=== PATIENT | female | born 1965 | race Caucasian/White ===

== ENCOUNTER 2017-09-15 23:58 | Emergency (ER) | payer OTHER ==
[2017-09-16] MEDS ORDERED: Ketorolac Tromethamine 60 MG/2 ML VIAL ONE (01:47)
[2017-09-16] MEDS ORDERED: Diazepam 10 MG/2 ML SYRINGE ONE (01:47)
== END 2017-09-16 02:24 | disposition home or self-care (01) ==
LOC: ERS 23:58
DX: G89.29 Other chronic pain (principal); M54.5 Low back pain; E03.9 Hypothyroidism, unspecified; F90.9 Attention-deficit hyperactivity disorder, unspecified type; Z79.899 Other long term (current) drug therapy; Z87.891 Personal history of nicotine dependence
CPT/HCPCS: 96372; J1885; J3360

== ENCOUNTER 2018-05-04 09:53 | Day surgery (SDC) | payer OTHER ==
[2018-05-04] MEDS ORDERED: Midazolam HCl 2 mg/2 ml Vial ONE (12:10)
[2018-05-04] MEDS ORDERED: Fentanyl 100 MCG/2 ML VIAL ONE (12:10)
[2018-05-04] MEDS ORDERED: PROPOFOL 200 MG/20 ML VIAL ONE (13:23)
--- NOTE | 2018-05-04 15:36 | MRI ---
MRI LUMBAR SPINE WITHOUT CONTRAST: COMPARISON: 02/16/2012. HISTORY: Lumbar degenerative disk disease. Lumbar radiculopathy. Chronic low back pain radiating down the le ft lower extremity. COMPARISON: None. TECHNIQUE: MRI lumbar spine is performed without intravenous Gadolinium administration. Multisequential, multip lanar imaging is performed. FINDINGS: Appropriate T1 marrow signal intensity of the lumbar vertebrae. Lumbar spine vertebral body height i s maintained. There is no fracture. No significant STIR hyperintensity to suggest vertebral body ed darnell or ligamentous injury. Appropriate signal intensity of the visualized paraspinal muscles including the psoas muscles. T2 hy perintensity in the right renal cortex likely representing cysts. Conus medullaris terminates at the lower aspect of L1. T12-L1: Adequate disk hydration. No significant central canal stenosis. Foramen are patent. L1-L2: Adequate disk hydration. No significant central canal stenosis. Foramen are patent. L2-L3: Adequate disk hydration. No significant central canal stenosis. Foramen are patent. L3-L4: Desiccation with mild loss of disk space height. There is minimal flattening of the ventral thecal sac secondary to broad-based disk bugle. Minimal ligamentum flavum thickening and facet hyper trophy. No significant central canal stenosis. Neural foramina are patent. L4-L5: Desiccation with mild loss of disk space height. Generalized disk bulge, mild ligamentum fla vum thickening, and facet hypertrophy are noted. No significant central canal stenosis. Right neura l foramen is patent. Mild left foraminal narrowing. L5-S1: Desiccation without significant loss of disk space height. There is a broad-based disk bulge , mild ligamentum flavum thickening, and facet hypertrophy. No significant central canal stenosis. Mild to moderate right and left foraminal narrowing. IMPRESSION: Degenerative change of the lumbar spine as detailed above. Degree of central canal stenosis at L3-L4 has decreased. Throughout the lumbar spine, there is no significant central canal stenosis. POS: [facility]
== END 2018-05-04 14:15 | disposition home or self-care (01) ==
LOC: SDC/OP 09:53
PROVIDERS: ATTEND Neurological Surgery
PROC: B03BZZZ Magnetic Resonance Imaging (MRI) of Spinal Cord (ICD-10-PCS; principal; 2018-05-04)
DX: M51.16 Intervertebral disc disorders with radiculopathy, lumbar region (principal); M48.061 Spinal stenosis, lumbar region without neurogenic claudication; E03.9 Hypothyroidism, unspecified; G43.909 Migraine, unspecified, not intractable, without status migrainosus; Z90.710 Acquired absence of both cervix and uterus; Z90.81 Acquired absence of spleen; Z98.51 Tubal ligation status; Z88.8 Allergy status to other drugs, medicaments and biological substances; Z79.899 Other long term (current) drug therapy
CPT/HCPCS: 72148; J2250; J3010

== ENCOUNTER 2019-02-07 12:34 | Observation (INO) | payer OTHER ==
[2019-02-07 13:51] LABS: #Basophils 0.1 thou/uL (0.0-0.2); #Eosinphils 0.3 thou/uL (0.0-0.7); #Monocytes 0.7 thou/uL (0.11-0.59); #Neutrophils 4.4 thou/uL (1.40-6.50); %Basophils 0.8 % (0.0-1.0); %Lymphocytes 35.2 % (21.0-51.0); %Monocytes 8.7 % (0.0-10.0); %Neutrophils 52.4 % (42.0-75.0); Hemoglobin 11.5 g/dL (12.0-16.0); Mean Corpuscular HGB CONC 32.4 g/dL (32.0-36.0); Mean Corpuscular Hemoglobin 30.8 pg (27.0-31.0); Mean Corpuscular Volume 95.2 fL (78.0-98.0); Mean Platelet Volume 7.3 fL (7.4-10.4); Platelet Count 296 thou/uL (130-400); RBC Distribution Width 12.7 % (11.5-14.5); Red Blood Cell (RBC) Count 3.73 mill/uL (4.20-5.40); White Blood Cell (WBC) Count 8.5 thou/uL (4.8-10.8)
[2019-02-07 14:23] LABS: ALT (SGPT) 40 U/L (8-55); AST (SGOT) 38 U/L (5-34); Albumin 3.8 g/dL (3.5-5.0); Alkaline Phosphatase 76 U/L (40-110); Anion Gap 12 mmol/L (10-20); BUN (Urea Nitrogen) 20 mg/dL (9.8-20.1); Bilirubin, Total 0.5 mg/dL (0.2-1.2); CK (CPK) 101 U/L (29-168); Calc. Creatinine Clearance 0 mL/min (70-130); Calcium 9.1 mg/dL (7.8-10.44); Carbon Dioxide 23 mmol/L (22-29); Chloride 107 mmol/L (98-107); Estimated GFR-MDRD 68; Globulin 3.1 g/dL (2.4-3.5); Glucose 88 mg/dL (70-105); Potassium 3.4 mmol/L (3.5-5.1); Protein, Total 6.9 g/dL (6.0-8.3); Sodium 139 mmol/L (136-145)
[2019-02-07 14:45] LABS: Bacteria/HPF None Seen HPF (None Seen); Bilirubin Negative (Negative); Blood, Urine Negative (Negative); Clarity Clear (Clear); Glucose, Urine (Dipstick) Normal (Negative); Leukocyte 25 Leu/uL (Negative); Nitrite Negative (Negative); Protein, Urine (Dipstick) Negative (Neg-Trace); RBC/HPF 0-3 HPF (0-3); Squamous Epithelial 0-3 HPF (0-3); Urobilinogen Normal mg/dL (Less than 2); WBC/HPF 0-3 HPF (0-3)
--- NOTE | 2019-02-07 15:57 | PDOC.FPRHP ---
- History of Present Illness Chief Complaint: dizziness History of Present Illness: This is a 53yo F presenting to the ER for dizziness. She was sent over from [facility] clinic due to low BPs -70/40s. She had surgery on Monday at [facility] for her back with Dr. Rodriguez - discectomy and fusion of L5-S1. Patient's pain has been controlled with [place] 10/325 and tylenol #4 (from before) at home. Endorses constipation. Patient states that she did walk around the floor on Monday prior to her discharge yesterday. She endorses pain in her left leg and numbness in the right. Denies fever, chills, NVD, chest pain, SOB, headaches, vision changes. Endorses ringing in her ears. Denies any loss of hearing. States that her BPs were low prior to discharge on Monday and that she has felt persistently dizzy and lightheaded. She states it is worse with position changes. She states the room is not spinning but she just feels lightheaded. ED Course: 2L NS - Allergies/Adverse Reactions Allergies Allergy/AdvReac Type Severity Reaction Status Date / Time dihydroergotamine Allergy Verified 05/03/18 17:16 [Dihydroergotamine] - Home Medications Medication Instructions Recorded Confirmed Type Dextroamphetamine/Amphetamine 30 mg PO DAILY 05/03/18 02/07/19 History [Dextroamp-Amphet ER 30 mg Cap] Levothyroxine Sodium [Synthroid] 137 mcg PO DAILY 05/03/18 02/07/19 History Topiramate [Topamax] 400 mg PO HS 05/04/18 02/07/19 History hydrOXYzine [Atarax] 25 mg PO HS PRN 05/04/18 02/07/19 History Ascorbic Acid [Vitamin C] 1,000 mg PO DAILY 02/07/19 02/07/19 History FLUoxetine HCl 20 mg PO DAILY 02/07/19 02/07/19 History Folic Acid 1 mg PO DAILY 02/07/19 02/07/19 History HYDROcodone/Acetaminophen [[place] 1 each PO PRN PRN 02/07/19 02/07/19 History 10-325 Tablet] clonazePAM [Klonopin] 0.5 mg PO HS 02/07/19 02/07/19 History tiZANidine HCl [Tizanidine HCl] 4 mg PO TID PRN 02/07/19 02/07/19 History - History PMHx: hypothyroidism, ADHD, hx of migraines, depression PSHx: discectomy/fusion on 02/05, tubal ligation, TAHBSO, splenectomy, cholecystectomy, tendon repair in L hand FHx: Uncle/cousin - DM, GM - CAD Social: Denies alcohol; Tobacco - smoked for 30yrs, 1pack/day; Currently vapes - Review of Systems General: denies: fever/chills, weight/appetite/sleep changes, night sweats, fatigue Eyes: denies: eye pain, vision changes ENT: denies: nasal congestion, rhinorrhea Respiratory: denies: cough, congestion, shortness of breath, exercise intolerance Cardiovascular: denies: chest pain, palpitation, edema, paroxysmal nocturnal dyspnea, orthopnea Gastrointestinal: denies: nausea, vomiting, diarrhea, constipation, abdominal pain Genitourinary: denies: dysuria Skin: denies: rashes, lesions Musculoskeletal: reports: pain, tenderness. denies: stiffness, swelling Neurological: denies: syncope, seizure, weakness Psychological: reports: depression - Vital signs BP: 95/46, MAP: 62, Pulse: 56, Resp: 20, Temp: 97.7 (Oral), Pain: 7, O2 sat: 98 on (Room Air), Time: 02/07/2019 15:15. Weight 80kg Bps in the room @ 1600pm 117/69 and 1639 122/60 after 1.5L - Physical Exam Constitutional: NAD, awake, alert and oriented, well developed HEENT: normocephalic and atraumatic, PERRLA, EOMI, no scleral icterus, grossly normal vision, grossly normal hearing, MMM -HEENT: unable to perform ellen hallpike due to back pain; no nystagmus noted Neck: supple, FROM Chest: no-tender to palpation, no lesions Heart: RRR, normal S1/S2, no murmurs/rubs/gallops, pulses present, no edema Lungs: CTAB, no respiratory distress, good air movement, no rales/rhonchi, no wheezing Abdomen: soft, non-tender, bowel sounds present, no masses/distention, no hernias -Musculoskeletal: limited ROM of lower back - difficulty with flexion or extension Neurological: no focal deficit, CN II-XII intact Skin: no rash/lesions, good turgor, capillary refill <2 seconds Psychiatric: normal mood and affect FMR H&P: Results - Labs Result Diagrams: 02/08/19 05:29 02/08/19 05:29 Lab results: WBC 8.5 thou/uL (4.8-10.8) 02/07/19 13:36 Hgb 11.5 g/dL (12.0-16.0) L 02/07/19 13:36 Hct 35.5 % (36.0-47.0) L 02/07/19 13:36 MCV 95.2 fL (78.0-98.0) 02/07/19 13:36 Plt Count 296 thou/uL (130-400) 02/07/19 13:36 Neutrophils % 52.4 % (42.0-75.0) 02/07/19 13:36 Sodium 139 mmol/L (136-145) 02/07/19 13:36 Potassium 3.4 mmol/L (3.5-5.1) L 02/07/19 13:36 Chloride 107 mmol/L (98-107) 02/07/19 13:36 Carbon Dioxide 23 mmol/L (22-29) 02/07/19 13:36 BUN 20 mg/dL (9.8-20.1) 02/07/19 13:36 Creatinine 0.87 mg/dL (0.6-1.1) 02/07/19 13:36 Glucose 88 mg/dL (70-105) 02/07/19 13:36 Calcium 9.1 mg/dL (7.8-10.44) 02/07/19 13:36 Total Bilirubin 0.5 mg/dL (0.2-1.2) 02/07/19 13:36 AST 38 U/L (5-34) H 02/07/19 13:36 ALT 40 U/L (8-55) 02/07/19 13:36 Alkaline Phosphatase 76 U/L (40-110) 02/07/19 13:36 Creatine Kinase 101 U/L (29-168) 02/07/19 13:36 Serum Total Protein 6.9 g/dL (6.0-8.3) 02/07/19 13:36 Albumin 3.8 g/dL (3.5-5.0) 02/07/19 13:36 Urine Ketones Negative mg/dL (Negative) 02/07/19 Unknown Urine Blood Negative (Negative) 02/07/19 Unknown Urine Nitrite Negative (Negative) 02/07/19 Unknown Ur Leukocyte Esterase 25 Sean/uL (Negative) 02/07/19 Unknown Urine RBC 0-3 HPF (0-3) 02/07/19 Unknown Urine WBC 0-3 HPF (0-3) 02/07/19 Unknown Ur Squamous Epith Cells 0-3 HPF (0-3) 02/07/19 Unknown Urine Bacteria None Seen HPF (None Seen) 02/07/19 Unknown FMR H&P: A/P - Problem List (1) Hypotension Current Visit: Yes Status: Acute (2) H/O discectomy Current Visit: Yes Status: Acute Code(s): Z98.890 - OTHER SPECIFIED POSTPROCEDURAL STATES (3) Hypothyroid Current Visit: Yes Status: Acute Code(s): E03.9 - HYPOTHYROIDISM, UNSPECIFIED (4) Depression Current Visit: Yes Status: Acute Code(s): F32.9 - MAJOR DEPRESSIVE DISORDER , SINGLE EPISODE, UNSPECIFIED (5) Migraine Current Visit: Yes Status: Acute Code(s): G43.909 - MIGRAINE, UNSP, NOT INTRACTABLE, WITHOUT STATUS MIGRAINOSUS - Plan #Hypotension 2/2 fluid depletion s/p Discetomy and fusion with Dr. Rodriguez on 02/05/19. - Will admit for fluid resuscitation. s/p 2L in the ER with BPs in the normal range. Will continue on mIVF and can likely dc in the AM. - Will give meclizine for dizziness - Continue norco for pain control as well as ibuprofen - No concern for infection at this time. Patient WBC is normal. Afebrile and other VS normal. #Hypothyroid - Will continue home meds. TSH normal #ADHD - On adderall, will hold during hospital stay #Migraines - No current symptoms. Will continue topamax HS. Code: FULL Diet: HH PPx: lovenox - due to recent surgery and immobile Dispo: admit to medical obs, likely dc tomorrow. Case discussed with Dr. Jenkins. Addendum - Attending - Attending Attestation Date/Time: 02/08/19 [id number] I personally evaluated the patient and discussed the management with Dr. Weaver. I agree with the History, Examination, Assessment and Plan documented above with any addition or exceptions noted below. Patient with very vague and nonspecific "dizziness" and "lightheadedness." She is noncommittal if this is with movement, rising, or other symptoms. No n/v. No f/c. Her back is causing her mild discomfort. Otherwise doing quite well with a nonfocal exam. Her incision has the original dressing and will need to be changed. Continue IVF, send AM cortisol, courtesy call to NSx.
[2019-02-07] MEDS ORDERED: Ondansetron ODT 4 MG TAB PO PRN (16:32)
[2019-02-07] MEDS ORDERED: Acetaminophen 325 MG TAB PO PRN (16:32)
[2019-02-07] MEDS ORDERED: Ondansetron PF 4 MG/2 ML Vial IVP PRN (16:32)
[2019-02-07] MEDS ORDERED: Acetaminophen 650 MG Suppository PR PRN (16:32)
[2019-02-07] MEDS ORDERED: Meclizine HCl 25 MG TAB PO PRN (17:09)
[2019-02-07] MEDS ORDERED: HYDROcodone/Acetaminophen 5/325 mg Tablet PO PRN (17:13)
[2019-02-07] MEDS ORDERED: Potassium Chloride 20 MEQ TAB PO SCH (17:15)
[2019-02-07] MEDS: Lactated Ringer's 1,000 ML IV SCH (18:03)
[2019-02-07 18:41] VITALS: BMI 30.1
[2019-02-07] MEDS: Topiramate 100 MG TAB PO SCH (20:43)
[2019-02-07] MEDS: Cyclobenzaprine 10 MG TAB PO SCH (20:44)
[2019-02-07] MEDS: hydrOXYzine 25 MG TAB PO SCH (20:44)
[2019-02-08] MEDS: HYDROcodone/Acetaminophen 10/325 mg Tablet PO PRN ×5 (00:29→23:15)
[2019-02-08] MEDS: Lactated Ringer's 1,000 ML IV SCH ×4 (01:45→20:28)
[2019-02-08] MEDS ORDERED: Melatonin 3 MG TAB PO PRN (02:28)
[2019-02-08] MEDS ORDERED: Acetaminophen 500 MG TAB PO PRN (02:30)
[2019-02-08] MEDS ORDERED: diphenhydrAMINE 25 MG CAP PO PRN (03:09)
[2019-02-08] MEDS ORDERED: hydrOXYzine 25 MG TAB PO SCH (04:00)
[2019-02-08] MEDS ORDERED: Docusate 100 MG CAP PO SCH (04:00)
[2019-02-08 05:49] LABS: #Basophils 0.1 thou/uL (0.0-0.2); #Eosinphils 0.2 thou/uL (0.0-0.7); #Lymphocytes 2.6 thou/uL (1.20-3.40); #Monocytes 0.7 thou/uL (0.11-0.59); #Neutrophils 3.6 thou/uL (1.40-6.50); %Eosinophils 3.2 % (0.0-10.0); %Lymphocytes 36.5 % (21.0-51.0); %Monocytes 9.1 % (0.0-10.0); %Neutrophils 50.3 % (42.0-75.0); Mean Corpuscular HGB CONC 32.6 g/dL (32.0-36.0); Mean Corpuscular Hemoglobin 31.1 pg (27.0-31.0); Mean Corpuscular Volume 95.2 fL (78.0-98.0); Mean Platelet Volume 7.1 fL (7.4-10.4); Platelet Count 287 thou/uL (130-400); RBC Distribution Width 12.7 % (11.5-14.5); Red Blood Cell (RBC) Count 3.53 mill/uL (4.20-5.40); White Blood Cell (WBC) Count 7.2 thou/uL (4.8-10.8)
[2019-02-08] MEDS: Levothyroxine Sodium 25 MCG TAB PO SCH (05:51)
[2019-02-08] MEDS: Levothyroxine Sodium 112 MCG TAB PO SCH (05:51)
[2019-02-08 06:14] LABS: Anion Gap 11 mmol/L (10-20); BUN (Urea Nitrogen) 13 mg/dL (9.8-20.1); Calc. Creatinine Clearance 115 mL/min (70-130); Calcium 8.4 mg/dL (7.8-10.44); Carbon Dioxide 19 mmol/L (22-29); Chloride 114 mmol/L (98-107); Estimated GFR-MDRD 85; Glucose 89 mg/dL (70-105); Potassium 4.9 mmol/L (3.5-5.1); Sodium 139 mmol/L (136-145)
--- NOTE | 2019-02-08 06:55 | PDOC.FM ---
- Subjective Subjective: Patient tearful and anxious today. States she hasn't slept in 5 days. - Objective MAR Reviewed: Yes Vital Signs & Weight: Vital Signs (12 hours) Temp Pulse Resp BP BP BP Pulse Ox 02/08/19 04:00 98.1 F 81 20 102/69 100 02/08/19 00:00 97.9 F 102 H 20 100/65 98 02/07/19 20:00 97.8 F 68 20 112/66 02/07/19 19:58 97.8 F 68 20 112/66 99 Weight Weight 79.605 kg Result Diagrams: 02/08/19 05:29 02/08/19 05:29 Phys Exam - Physical Examination Constitutional: NAD HEENT: moist MMs, sclera anicteric Neck: supple, full ROM Respiratory: no wheezing, no rales, no rhonchi, clear to auscultation bilateral Cardiovascular: RRR, no significant murmur, no rub Gastrointestinal: soft, non-tender, no distention Musculoskeletal: no edema, pulses present Neurological: non-focal, normal sensation Psychiatric: normal affect, A&O x 3 Dx/Plan - Plan Plan: Hypotension 2/2 dehydration s/p Discetomy and fusion with Dr. Rodriguez on 02/05/19 at [facility] - Will admit for fluid resuscitation. s/p 2L in the ER with BPs in the normal range. Continue IVF - Will give meclizine for dizziness - Continue norco for pain control as well as ibuprofen - No concern for infection at this time. Patient WBC is normal. Afebrile and other VS normal. - Will contact surgeon for postoperative pain control expectations Decreased AM cortisol - will pursue ACTH stimulation test Hypothyroid - Will continue home meds. TSH normal ADHD - On adderall, will hold during hospital stay Migraines - No current symptoms. Will continue topamax HS. Code: FULL Diet: HH PPx: lovenox - due to recent surgery and immobile Dispo: admit to medical obs, likely dc today Addendum - Attending - Attending Attestation Date/Time: 02/08/19 1710 I personally evaluated the patient and discussed the management with Dr. Gibson. I agree with the History, Examination, Assessment and Plan documented above with any addition or exceptions noted below. I think her chroninc insomnia is related to anxiety and long history of alcohol , opioid and benzo exposure. We will not contue her adderall. Will use non benzo pharmacology therapy to help with sleep recognizing there is not quick fix. We will consult NS for approprite post op pain control regimen and start therapy for opioid-related constipation.
[2019-02-08] MEDS ORDERED: Non-Formulary Item 1 EACH (Levothyroxine Sodium [Synthroid] 137 MCG) PO SCH (09:00)
[2019-02-08] MEDS: Bupropion 150 MG XL TAB PO SCH (09:08)
[2019-02-08] MEDS: Enoxaparin Sodium 40 MG/0.4 ML SYRINGE SC SCH (09:08)
[2019-02-08] MEDS: Ibuprofen 200 MG TAB PO PRN ×2 (10:21→15:36)
[2019-02-08] MEDS: Cephalexin 250 MG CAP PO SCH ×3 (12:21→23:15)
[2019-02-08] MEDS ORDERED: Polyethylene Glycol 3350 17 GM Packet PO SCH (12:45)
[2019-02-08] MEDS ORDERED: Cosyntropin 250 MCG VIAL SLOW IVP SCH (15:45)
[2019-02-08] MEDS: Cyclobenzaprine 10 MG TAB PO SCH (20:29)
[2019-02-08] MEDS: Topiramate 100 MG TAB PO SCH (20:30)
[2019-02-08] MEDS: hydrOXYzine 25 MG TAB PO SCH (20:30)
[2019-02-09] MEDS: HYDROcodone/Acetaminophen 10/325 mg Tablet PO PRN ×2 (03:29→10:16)
[2019-02-09] MEDS: Cephalexin 250 MG CAP PO SCH ×2 (05:31→13:23)
[2019-02-09] MEDS: Levothyroxine Sodium 112 MCG TAB PO SCH (05:31)
[2019-02-09] MEDS: Levothyroxine Sodium 25 MCG TAB PO SCH (05:32)
--- NOTE | 2019-02-09 05:51 | PDOC.FM ---
- Subjective Subjective: Doing well this morning. States dizziness if improved but still present at times and worse with positional changes. Denies any CP, SOB, n/v, fever/chills. No syncopal events or vision changes. Does endorse chronic constipation with small BM yesterday. - Objective MAR Reviewed: Yes Vital Signs & Weight: Vital Signs (12 hours) Temp Pulse Resp BP Pulse Ox 02/08/19 20:00 98.0 F 87 20 116/78 97 Weight Admit Weight 79.605 kg Weight 79.605 kg I&O: 02/07/19 02/08/19 02/09/19 06:59 06:59 06:59 Intake Total 1200 4340 Balance 1200 4340 Result Diagrams: 02/08/19 05:29 02/08/19 05:29 Phys Exam - Physical Examination Constitutional: NAD HEENT: PERRLA, moist MMs Neck: supple Respiratory: no wheezing, no rales, no rhonchi, clear to auscultation bilateral Cardiovascular: RRR, no significant murmur, no rub Gastrointestinal: soft, non-tender, no distention, positive bowel sounds Musculoskeletal: no edema, pulses present Neurological: non-focal, normal sensation, moves all 4 limbs Psychiatric: normal affect, A&O x 3 Dx/Plan (1) Dizziness Code(s): R42 - DIZZINESS AND GIDDINESS Status: Acute (2) Depression Code(s): F32.9 - MAJOR DEPRESSIVE DISORDER, SINGLE EPISODE, UNSPECIFIED Status : Chronic (3) H/O discectomy Code(s): Z98.890 - OTHER SPECIFIED POSTPROCEDURAL STATES Status: Chronic (4) Hypothyroid Code(s): E03.9 - HYPOTHYROIDISM, UNSPECIFIED Status: Chronic - Plan Plan: 53yo CF with recent L5/S1 fusion, hypothyroidism, chronic pain, and depression who presents with hypotension and dizziness. #Hypotension 2/2 dehydration, resolved - s/p Discetomy and fusion with Dr. Rodriguez on 02/05/19 at [facility] - Initial fluid resuscitation. s/p 2L in the ER with BPs in the normal range. BP 's stable at 110s/70s, tolerating PO well, will d/c fluids this AM. - Continue norco for pain control as well as ibuprofen - No concern for infection at this time. Patient WBC is normal. Afebrile and other VS normal. - Seen by neurosurg, apprec assistance, restarted post-op keflex, stating wound healing well #Decreased AM cortisol - ACTH stim test positive for mild adenal insufficiency - Need basal ACTH, will order for this AM, but may be off 2/2 test last night - Sxs resolved, further testing and consider steroids - Possibly 2/2 acute stress with recent surgery #Hypothyroid - Will continue home meds. TSH normal #ADHD - On adderall, will hold during hospital stay #Migraines - No current symptoms. Will continue topamax HS. #Constipation - Miralax and Senokot per home regime Code: FULL Diet: HH PPx: lovenox - due to recent surgery and immobile Dispo: Admitted to medical obs, hypotension resolved, concern for adrenal insufficiency, workup continuing, consider addition of steroids. Addendum - Attending - Attending Attestation Date/Time: 02/09/19 7415 I personally evaluated the patient and discussed the management with Dr. Nanci Starr I agree with the History, Examination, Assessment and Plan documented above with any addition or exceptions noted below.Patient was very vocal and unhappy with nurse and care in general this AM during my rounds. I reviewed in detail our care plan and reasons with for holding some of "polypharmacy" medications. Will IV Bolus 500 NS and trial stress dose steroid to see if we can get her feeling better. Nurse patiently trying to appropriately redirect and reconcile all her home medications with the patient.
[2019-02-09] MEDS: Bupropion 150 MG XL TAB PO SCH (09:36)
[2019-02-09] MEDS: Enoxaparin Sodium 40 MG/0.4 ML SYRINGE SC SCH (10:15)
[2019-02-09] MEDS ORDERED: Non-Formulary Item 1 EACH (Tizanidine Hcl [Tizanidine Hcl] 4 MG) PO PRN (10:55)
[2019-02-09] MEDS ORDERED: tiZANidine HCl 4 MG TAB PO PRN (10:58)
[2019-02-09] MEDS ORDERED: Hydrocortisone 10 mg Tablet PO SCH ×2 (11:45→21:00)
[2019-02-09] MEDS ORDERED: Senokot S 8.6-50 MG TAB PO SCH ×2 (13:30→21:00)
[2019-02-09 17:09] VITALS: BP 126/84; TEMP 97.8
[2019-02-10] MEDS ORDERED: FLUoxetine HCl 20 MG CAP PO SCH (09:00)
[2019-02-10] MEDS ORDERED: Non-Formulary Item 1 EACH (Ascorbic Acid [Vitamin C] 1,000 MG) PO SCH (09:00)
[2019-02-10] MEDS ORDERED: Folic Acid 1 MG TAB PO SCH (09:00)
[2019-02-10] MEDS ORDERED: Non-Formulary Item 1 EACH (Fluoxetine Hcl [Fluoxetine Hcl] 20 MG) PO SCH (09:00)
[2019-02-10] MEDS ORDERED: Ascorbic Acid 500 mg Chewable Tablet PO SCH (09:00)
--- NOTE | 2019-02-11 00:40 | DIS ---
DATE OF ADMISSION: 02/07/2019 DATE OF DISCHARGE: 02/09/2019 RESIDENT: Ronnie Starr MD ADMITTING ATTENDING: Odilon Jenkins MD DISCHARGE ATTENDING: Karan Enamorado MD CONSULTS: Neurosurgery. PROCEDURES: None. PRIMARY DIAGNOSES: 1. Hypotension secondary to dehydration, resolved. 2. Stress response secondary to recent surgery. SECONDARY DIAGNOSES: 1. Hypothyroidism. 2. Adult attention deficit hyperactivity disorder. 3. History of migraines. 4. History of constipation. 5. Chronic pain. 6. Depression. 7. Recent L5-S1 fusion. DISCHARGE MEDICATIONS: 1. Levothyroxine 137 mcg p.o. daily. 2. Hydroxyzine 25 mg p.o. at bedtime p.r.n. 3. Topamax 40 mg p.o. at bedtime. 4. Klonopin 0.5 mg p.o. at bedtime. 5. [place] 10/325 one tablet p.o. t.i.d. p.r.n. 6. Tizanidine 4 mg p.o. t.i.d. p.r.n. 7. Folic acid 1 mg p.o. daily. 8. Prozac 20 mg p.o. daily. 9. Vitamin C 1000 mg p.o. daily. 10. Keflex 250 mg p.o. q.6 hours x7 days. 11. Hydrocortisone 25 mg p.o. b.i.d. x2 days. DISCONTINUED MEDICATIONS: None. HISTORY OF PRESENT ILLNESS AND HOSPITAL COURSE: The patient is a 53-year-old female with history of hypothyroidism, ADHD, migraines, depression, who presented to the ER for dizziness, found to be hypotensive. She initially presented to the [facility] with blood pressure to the 70s/ 40s. Of note, she had recent surgery at [facility] discectomy and fusion of L5-S1. Pain was well controlled with [place] 10/325 and Tylenol No.4. The patient denied any chest pain, shortness of breath, headaches, or vision changes. The patient states that her dizziness and lightheadedness were worse with positional changes, but denied any vertigo. In the ED, she was given 2 L normal saline bolus and was admitted for further evaluation and management. Once on the floor, the patient was continued on IV fluid hydration. The patient 's blood pressure improved. The patient's initial laboratory work was unremarkable. Her home medications were continued; however, her Adderall was held during hospitalization. The patient had a a.m. cortisol level that was checked and found to be low, thus there was concern for adrenal insufficiency. The patient had an ACTH stimulation test that was negative for adrenal insufficiency, however, was right at the cutoff of 18 to 20 cortisol level with administration of ACTH. Unfortunately, a basal ACTH level was not obtained prior to administration of the test. However, the following morning ACTH level was ordered and was pending at the time of discharge. The patient's blood pressure improved with steroids and IV hydration and thus it was determined that the patient likely had an acute renal insufficiency secondary to her recent physiologic stress of neurosurgery. At the time of discharge, the patient's blood pressure was 126/84. She was ambulating with physical therapy. Neurosurgery did come by and evaluate the patient who stated that her incision was healing well and the patient was continued on Keflex for postop prophylaxis. At the time of discharge, the patient stated that she was still under a lot of emotional stress at home and having some insomnia. The patient does have medications for this and was encouraged to follow up with her primary care physician upon discharge for continued management. Otherwise, the patient was medically stable and ready for discharge. Discharge plans were discussed with the patient including the need to continue 2 more days of hydrocortisone. The patient needs to follow up with her primary care physician within one week of discharge for evaluation of blood pressure and consider retesting for adrenal insufficiency if symptoms should continue. The patient's electrolytes did remain stable throughout her hospitalization. The patient voiced agreement and understanding of this discharge plan and stated that she will follow up with her primary care physician as well as the neurosurgeon as directed. DISPOSITION: Stable. DISCHARGE INSTRUCTIONS: 1. Location: Home. 2. Diet: Regular. 3. Activity: As tolerated. 4. Followup: The patient is to follow up with the primary care physician within one week of discharge as well as with her neurosurgeon as directed. Job ID: [id number] MTDD
--- NOTE | 2019-02-11 08:38 | CON ---
DATE OF CONSULTATION: HISTORY OF PRESENT ILLNESS: The patient is a 53-year-old female recently evaluated in our office for lumbar degenerative disk disease who underwent L5-S1 diskectomy and fusion on 02/05/19. She was at [facility] and transitioned to [facility] floor where she was mobilized appropriately and dismissed to home. She was dismissed to home with prescriptions for [place] 10/325 q.6h p.r.n. tizanidine 4 mg one tab p.o. q.6h p.r.n. pain, as well as Keflex 500 q.i.d. for 10 days. Since being discharged to home, the patient reports ongoing low back pain as well as numbness and tingling going down the right leg. Several of these symptoms were also present prior to surgery. Her symptoms remained intact and she has been mobilizing appropriately. [facility] and noted to have significant hypertension and therefore admitted for fluid resuscitation. Since her admission, her blood pressure has improved. They are evaluating her cortisol levels. I have been asked to evaluate for her ongoing back pain and leg dysesthesias. I visited with the patient, sitting up at the side of the bed and seen walking back and forth across the room without any difficulty. She has very active range of motion of lower extremities, no focal motor weakness. Her reflexes are intact. She has negative straight leg raises. Her incision has scant amount of dry blood on the dressing but no acute or active drainage is appreciated. There is no swelling or signs of infection. At this point, patient appears to have a normal postoperative physical exam with good strength throughout following her surgery. I anticipate her back pain as well as right leg dysesthesias will take some time to prior to her surgery. I have recommended to continue p.r.n. [place] as tolerated. However, this may be difficult due to her intermittent hypertension. She also has complaints of insomnia. However, we will defer any insomnia medications to her primary team. I will plan to follow up with her in 2 weeks in the outpatient setting with x-rays at that time. Please recheck with Neurosurgery for additional questions or concerns. Job ID: [id number]
== END 2019-02-09 18:18 | disposition home or self-care (01) ==
LOC: ERS 12:34 → T4-B 17:56
PROVIDERS: ADMIT Emergency Medicine; ATTEND Emergency Medicine
DX: E86.0 Dehydration (principal); I95.9 Hypotension, unspecified; F43.9 Reaction to severe stress, unspecified; E03.9 Hypothyroidism, unspecified; F90.9 Attention-deficit hyperactivity disorder, unspecified type; G43.909 Migraine, unspecified, not intractable, without status migrainosus; K59.00 Constipation, unspecified; G89.29 Other chronic pain; F32.9 Major depressive disorder, single episode, unspecified; F17.290 Nicotine dependence, other tobacco product, uncomplicated; G47.00 Insomnia, unspecified; Z79.899 Other long term (current) drug therapy; Z88.8 Allergy status to other drugs, medicaments and biological substances; Z98.1 Arthrodesis status
CPT/HCPCS: 36415; 80048; 80053; 80400; 81003; 81015; 82024; 82533; 82550; 84443; 85025; 96360; 96361; 96372; 96374; G0378; J0834; J1650; J8597

== ENCOUNTER 2019-02-19 15:23 | Outpatient (CLI) | payer OTHER ==
--- NOTE | 2019-02-19 15:49 | RAD ---
Exam: 2 views lumbar spine HISTORY: Lumbar radiculopathy. Follow-up. Surgery was 2 weeks ago FINDINGS: Unilateral right-sided transpedicular screw at L5 and S1. No perihardware lucency. There is a L5-S1 disc prosthesis. The anterior aspect of this prosthesis is beyond the space. No evidence of spondylolisthesis or spondylolysis. IMPRESSION: Lumbar fusion changes as above. The L5-S1 disc prosthesis is anterior to the L5-S1 disc s pace. Transcribed Date/Time: 02/19/2019 4:18 PM
== END 2019-02-19 15:24 | disposition home or self-care (01) ==
LOC: BICRAD 15:23
PROVIDERS: ATTEND Neurological Surgery
DX: M54.16 Radiculopathy, lumbar region (principal); Z98.1 Arthrodesis status
CPT/HCPCS: 72100

== ENCOUNTER 2019-04-03 09:01 | Outpatient (CLI) | payer OTHER ==
--- NOTE | 2019-04-03 09:28 | RAD ---
EXAM: 3 views of the lumbosacral spine HISTORY: Low back pain status post fusion of the lumbar spine COMPARISON: 02/19/2019 FINDINGS: 3 views of the lumbosacral spine shows the patient is status post posterior fusion of L5 an d S1 with right-sided pedicle screws. The disc spacer in the L5/S1 displaced has stable anterior displacement. The sacroiliac joints are unremarkable. The vertebral bodies demonstrate normal height and alignment without fracture or subluxation. IMPRESSION: Stable postsurgical changes of the lower lumbar spine.
== END 2019-04-03 09:02 | disposition home or self-care (01) ==
LOC: TBSIIMAG 09:01
PROVIDERS: ATTEND Neurological Surgery
DX: M51.36 Other intervertebral disc degeneration, lumbar region (principal); Z98.890 Other specified postprocedural states
CPT/HCPCS: 72100

== ENCOUNTER 2019-07-03 12:37 | Outpatient (CLI) | payer OTHER ==
--- NOTE | 2019-07-03 12:50 | RAD ---
EXAM: XR Lumbar Spine 2 Or 3 View PROVIDED CLINICAL HISTORY: Low back pain. History of prior low back surgery. COMPARISON: 04/03/2019 FINDINGS: Again noted are postoperative changes at the L5-S1 level with unilateral right-sided pedicular screws transfixed by posterior adriano. Intradiscal prosthesis is again noted at this level. The intradiscal prosthesis again remains displaced anterior to the disc space. There is stable mild loss of intervert ebral disc at the L4-5 level. The vertebral body heights are within normal limits. No fracture or subluxation is seen. Surgical clips again overlie the upper abdomen. No other interval change IMPRESSION: Stable postoperative and degenerative changes of the lumbar spine. The L5-S1 disc prosthesis is again located anterior to the L5-S1 intervertebral disc space.
== END 2019-07-03 12:38 | disposition home or self-care (01) ==
LOC: BICRAD 12:37
PROVIDERS: ATTEND Neurological Surgery
DX: M54.5 Low back pain (principal); M47.816 Spondylosis without myelopathy or radiculopathy, lumbar region; Z98.890 Other specified postprocedural states
CPT/HCPCS: 72100

== ENCOUNTER 2019-09-25 14:12 | Outpatient (CLI) | payer OTHER ==
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
== END 2019-09-25 14:13 | disposition home or self-care (01) ==
LOC: BICRAD 14:12
PROVIDERS: ATTEND Neurological Surgery
DX: M54.16 Radiculopathy, lumbar region (principal); R93.7 Abnormal findings on diagnostic imaging of other parts of musculoskeletal system; Z98.1 Arthrodesis status
CPT/HCPCS: 72100

== ENCOUNTER 2020-04-10 13:22 | Day surgery (SDC) | payer OTHER ==
[2020-04-08 10:45] VITALS: BMI 28.6
[~2020-04-10 13:22] MED LIST: Dexamethasone 20 MG/5 ML VIAL ONE; Lidocaine 1% PF 5 ML VIAL ONE; Ondansetron PF 4 MG/2 ML Vial ONE; PROPOFOL 200 MG/20 ML VIAL ONE
[2020-04-10] MEDS ORDERED: Midazolam HCl 2 mg/2 ml Vial ONE (13:34)
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
== END 2020-04-10 16:00 | disposition home or self-care (01) ==
LOC: MRI 13:22
PROVIDERS: ATTEND Family Medicine
DX: M48.02 Spinal stenosis, cervical region (principal); M47.812 Spondylosis without myelopathy or radiculopathy, cervical region; M48.07 Spinal stenosis, lumbosacral region; M51.26 Other intervertebral disc displacement, lumbar region; M48.061 Spinal stenosis, lumbar region without neurogenic claudication; Z88.8 Allergy status to other drugs, medicaments and biological substances
CPT/HCPCS: 72141; 72148; J2250

== ENCOUNTER 2020-08-12 07:56 | Outpatient (CLI) | payer OTHER | END 2020-08-12 07:57 | disposition home or self-care (01) | LOC: BICMAMMO 07:56 | PROVIDERS: ATTEND Family Medicine | DX: Z12.31 Encounter for screening mammogram for malignant neoplasm of breast (principal); Z78.0 Asymptomatic menopausal state; Z13.820 Encounter for screening for osteoporosis; Z80.3 Family history of malignant neoplasm of breast; M85.851 Other specified disorders of bone density and structure, right thigh; M81.0 Age-related osteoporosis without current pathological fracture | CPT/HCPCS: 77063; 77067; 77080 ==

== ENCOUNTER 2021-05-21 11:49 | Day surgery (SDC) | payer OTHER ==
[2021-05-19 09:33] VITALS: BMI 25.0
[2021-05-21] MEDS ORDERED: Midazolam HCl 2 mg/2 ml Vial ONE (12:54)
== END 2021-05-21 15:50 | disposition home or self-care (01) ==
LOC: SDC/OP 11:49
PROVIDERS: ATTEND Neurological Surgery
DX: M54.16 Radiculopathy, lumbar region (principal); M48.061 Spinal stenosis, lumbar region without neurogenic claudication; Z79.890 Hormone replacement therapy; Z79.899 Other long term (current) drug therapy; Z88.8 Allergy status to other drugs, medicaments and biological substances
CPT/HCPCS: 72100; 72158; 82565; J2250

== ENCOUNTER 2021-07-21 23:54 | Emergency (ER) | payer OTHER | END 2021-07-22 01:14 | disposition home or self-care (01) | LOC: ERS 23:54 | DX: S63.501A Unspecified sprain of right wrist, initial encounter (principal); Z87.891 Personal history of nicotine dependence; W18.30XA Fall on same level, unspecified, initial encounter | CPT/HCPCS: 29125 ==

== ENCOUNTER 2021-08-04 13:53 | Outpatient (CLI) | payer OTHER | END 2021-08-04 13:54 | disposition home or self-care (01) | LOC: BICRAD 13:53 | PROVIDERS: ATTEND Nurse Practitioner Family | DX: M25.511 Pain in right shoulder (principal); Z98.890 Other specified postprocedural states ==

== ENCOUNTER 2021-09-29 14:56 | Emergency (ER) | payer OTHER ==
[2021-09-29] MEDS ORDERED: Acetaminophen 500 MG TAB ONE (15:57)
== END 2021-09-29 16:53 | disposition home or self-care (01) ==
LOC: ERS 14:56
DX: Z20.822 Contact with and (suspected) exposure to COVID-19 (principal); E11.9 Type 2 diabetes mellitus without complications; E03.9 Hypothyroidism, unspecified; G43.909 Migraine, unspecified, not intractable, without status migrainosus; Z87.891 Personal history of nicotine dependence
CPT/HCPCS: 99283; U0003; U0005

== ENCOUNTER 2023-04-05 16:30 | Outpatient (CLI) | payer OTHER | END 2023-04-05 16:31 | disposition home or self-care (01) | LOC: RAD 16:30 | PROVIDERS: ATTEND Anesthesiology Pain Medicine | DX: M79.672 Pain in left foot (principal); M79.671 Pain in right foot; M21.172 Varus deformity, not elsewhere classified, left ankle; M20.12 Hallux valgus (acquired), left foot ==

== ENCOUNTER 2023-07-12 08:17 | Inpatient (IN) | payer OTHER ==
[2023-07-12] MEDS ORDERED: Thiamine HCl 200 MG/2 ML VIAL ONE (10:16)
[2023-07-12 10:19] LABS: #Basophils 0.09 10x3/uL (0.0-0.2); %Basophils 1.2 % (0.0-1.0); %Eosinophils 1.8 % (0.0-10.0); %Lymphocytes 31.1 % (21.0-51.0); %Monocytes 8.3 % (0.0-10.0); %Neutrophils 57.5 % (42.0-75.0); Globulin 3.3 g/dL (2.4-3.5); Hematocrit 39.4 % (36.0-47.0); Hemoglobin 12.9 g/dL (12.0-16.0); Mean Corpuscular HGB CONC 32.7 g/dL (32.0-36.0); Mean Corpuscular Hemoglobin 31.5 pg (27.0-31.0); Mean Corpuscular Volume 96.3 fL (78.0-98.0); Mean Platelet Volume 9.2 fL (7.4-10.4); Platelet Count 348 10x3/uL (130-400); RBC Distribution Width 14.2 % (11.5-14.5); Red Blood Cell (RBC) Count 4.09 mill/uL (4.20-5.40)
[2023-07-12 10:22] LABS: Acetaminophen Less than 10 mcg/mL (10.0-30.0); Alcohol Less than 10.0 mg/dL (Less than 10)
[2023-07-12 10:23] LABS: ALT (SGPT) 21 U/L (8-55); AST (SGOT) 17 U/L (5-34); Albumin 3.7 g/dL (3.5-5.0); Alkaline Phosphatase 72 U/L (40-110); Anion Gap 14 mmol/L (10-20); BUN (Urea Nitrogen) 16 mg/dL (9.8-20.1); Calc. Creatinine Clearance 0 mL/min (70-130); Carbon Dioxide 21 mmol/L (22-29); Chloride 111 mmol/L (98-107); Estimated GFR 79; Glucose 104 mg/dL (70-105); Potassium 3.2 mmol/L (3.5-5.1); Salicylate Less than 8.0 mg/dL (15.0-30.0); Sodium 143 mmol/L (136-145)
[2023-07-12 10:49] LABS: Free T4 (Free Thyroxine) 0.95 ng/dL (0.70-1.48); Thyroid Stimulating Hormone 3.6774 uIU/mL (0.35-4.94)
[2023-07-12] MEDS ORDERED: Acetaminophen 500 MG TAB ONE (11:49)
[2023-07-12 12:23] LABS: Bilirubin, Total 0.4 mg/dL (0.2-1.2); Calcium 9.5 mg/dL (7.8-10.44); Magnesium 1.9 mg/dL (1.6-2.6)
[2023-07-12] MEDS ORDERED: Potassium Chloride 20 MEQ TAB ONE (12:32)
[2023-07-12 12:42] LABS: Bacteria/HPF 4+ HPF (None Seen); Bilirubin Negative (Negative); Blood, Urine Negative (Negative); CAUTI Indications for Culture Alt mental st,lethar; Clarity Clear (Clear); Glucose, Urine (Dipstick) Normal (Negative); Ketone, Urine Negative (Negative); Leukocyte 75 Leu/uL (Negative); Nitrite 2+ (Negative); Protein, Urine (Dipstick) Negative (Neg-Trace); RBC/HPF 0-3 HPF (0-3); Specific Gravity, Urine 1.026 (1.002-1.036); Squamous Epithelial None Seen HPF (0-3); Urobilinogen Normal mg/dL (Less than 2); pH, Urine 5.5 (5.0-9.0)
[2023-07-12 12:43] LABS: Pregnancy Test - Urine (BHCG) Negative (Negative); Pregu Control Background? CLEAR/WHITE (CLR/WHITE); Pregu Control Bar Appear? YES (CONTROL BAR); Specific Gravity 1.026 (1.002-1.036)
[2023-07-12 12:44] LABS: Urine Culture Reflex Yes Yes
[2023-07-12 12:45] LABS: Amphetamine Not Detected (NotDetected); Barbiturates Screen Not Detected (NotDetected); Benzodiazepine Screen Not Detected (NotDetected); Cocaine Metabolite Screen Not Detected (NotDetected); Methadone Not Detected (NotDetected); Methamphetamine Not Detected (NotDetected); Opiate Screen Not Detected (NotDetected); Oxycodone Screen Not Detected (NotDetected); Phencyclidine (PCP) Not Detected (NotDetected); THC/Cannabinoid Screen Not Detected (NotDetected); Tricyclic Screen Not Detected (NotDetected)
[2023-07-12] MEDS ORDERED: Acetaminophen 325 MG TAB PO PRN (13:16)
[2023-07-12] MEDS ORDERED: Lorazepam 2 MG/ML VIAL SLOW IVP PRN (13:20)
[2023-07-12] MEDS ORDERED: cefTRIAXone (ROCEPHIN) 1 GM VIAL ONE (14:31)
[2023-07-12] MEDS: cefTRIAXone\\ROCEPHIN 1 GM in Sodium Chloride 0.9% 100 ML IVPB SCH (14:35)
[2023-07-12 18:22] VITALS: BMI 32.8
[2023-07-12] MEDS: Acetaminophen/Codeine 30-300mg Tablet PO PRN (21:36)
[2023-07-12] MEDS: Topiramate 100 MG TAB PO SCH (21:38)
[2023-07-12] MEDS: Lurasidone 20 MG TABLET PO SCH (21:38)
[2023-07-12] MEDS: DULoxetine 60 MG CAP PO SCH (21:39)
[2023-07-12] MEDS: Lurasidone 40 MG TAB PO SCH (22:44)
[2023-07-13 05:06] LABS: #Basophils 0.09 10x3/uL (0.0-0.2); %Basophils 1.2 % (0.0-1.0); %Eosinophils 2.7 % (0.0-10.0); %Lymphocytes 48.3 % (21.0-51.0); %Monocytes 7.6 % (0.0-10.0); %Neutrophils 40.1 % (42.0-75.0); Hematocrit 40.4 % (36.0-47.0); Mean Corpuscular HGB CONC 32.2 g/dL (32.0-36.0); Mean Corpuscular Hemoglobin 31.5 pg (27.0-31.0); Mean Corpuscular Volume 97.8 fL (78.0-98.0); Mean Platelet Volume 9.2 fL (7.4-10.4); Platelet Count 327 10x3/uL (130-400); RBC Distribution Width 14.2 % (11.5-14.5); Red Blood Cell (RBC) Count 4.13 mill/uL (4.20-5.40)
[2023-07-13 05:18] LABS: Anion Gap 14 mmol/L (10-20); BUN (Urea Nitrogen) 12 mg/dL (9.8-20.1); Calc. Creatinine Clearance 104 mL/min (70-130); Calcium 8.9 mg/dL (7.8-10.44); Carbon Dioxide 19 mmol/L (22-29); Chloride 112 mmol/L (98-107); Estimated GFR 87; Glucose 111 mg/dL (70-105); Sodium 141 mmol/L (136-145)
[2023-07-13] MEDS: Levothyroxine Sodium 125 MCG TAB PO SCH (05:44)
[2023-07-13] MEDS ORDERED: Phenazopyridine HCl 100 MG TAB PO PRN (06:24)
[2023-07-13] MEDS: Lactated Ringer's 1,000 ML IV SCH (07:46)
[2023-07-13] MEDS: Loratadine 10 MG TAB PO SCH (08:59)
[2023-07-13] MEDS: Enoxaparin 40 MG (0.4 mL) SYRINGE SC SCH (09:00)
[2023-07-13 09:01] VITALS: BMI 32.8
[2023-07-13] MEDS: lamoTRIgine 100 MG TAB PO SCH ×2 (09:26→20:43)
[2023-07-14 08:05] VITALS: BP 123/83; TEMP 99
== END 2023-07-14 12:22 | disposition home or self-care (01) | DRG 690 ==
LOC: ERS 08:17 → ERHOLD 13:14 → 2SE 16:24 → OBSVTOIN 07-14 08:14
PROVIDERS: ADMIT Family Medicine; ATTEND Family Medicine
PROC: 4A00X4Z Measurement of Central Nervous Electrical Activity, External Approach (ICD-10-PCS; principal; 2023-07-13)
DX: N39.0 Urinary tract infection, site not specified (principal); F31.9 Bipolar disorder, unspecified; E03.9 Hypothyroidism, unspecified; G43.909 Migraine, unspecified, not intractable, without status migrainosus; Z66 Do not resuscitate; G25.3 Myoclonus; F90.9 Attention-deficit hyperactivity disorder, unspecified type; R49.0 Dysphonia; M50.20 Other cervical disc displacement, unspecified cervical region; E87.6 Hypokalemia; Z79.899 Other long term (current) drug therapy; Z79.890 Hormone replacement therapy; Z88.8 Allergy status to other drugs, medicaments and biological substances; Z90.710 Acquired absence of both cervix and uterus; Z90.79 Acquired absence of other genital organ(s); Z82.49 Family history of ischemic heart disease and other diseases of the circulatory system; Z90.49 Acquired absence of other specified parts of digestive tract; Z98.890 Other specified postprocedural states; Z90.81 Acquired absence of spleen
CPT/HCPCS: 36415; 36416; 70450; 70551; 71045; 72125; 80048; 80053; 80175; 80306; 80307; 81001; 81025; 83735; 84146; 84439; 84443; 85025; 87040; 87077; 87086; 87186; 93005; 94760; 95700; 95711; 95819; 96372; 96375; 96376; G0378; J0696; J1650; J3411; J3490; J7120

== ENCOUNTER 2023-11-27 15:25 | Emergency (ER) | payer OTHER ==
[2023-11-27] MEDS ORDERED: Lidocaine 1% PF 5 ML VIAL ONE ×2 (20:41→20:58)
[2023-11-27] MEDS ORDERED: Boostrix 0.5 ML (Tdap) VIAL (>/=7 yrs of age) ONE (21:48)
== END 2023-11-27 22:25 | disposition home or self-care (01) ==
LOC: ERS 15:25
DX: S61.011A Laceration without foreign body of right thumb without damage to nail, initial encounter (principal); F17.290 Nicotine dependence, other tobacco product, uncomplicated; W26.8XXA Contact with other sharp object(s), not elsewhere classified, initial encounter; Z23 Encounter for immunization
CPT/HCPCS: 12001; 90471; 90715